=== PATIENT | female | born 1995 | race Caucasian/White ===

== ENCOUNTER 2020-11-19 10:49 | Inpatient (IN) | payer BC ==
--- NOTE | 2020-11-19 11:45 | ED ---
Psych HPI - General Chief Complaint: Psychiatric Symptoms Stated Complaint: Mental Health Time Seen by Provider: 11/19/20 11:08 Source: patient Mode of arrival: ambulatory - History of Present Illness Initial Comments: 25-year-old female history of depression presents emergency department today for chief complaint of suicidal thoughts increasing depression x 2 days. Patient states that she has been on multiple medications for depression none of which seemed to help. They're currently evaluating her for possible bipolar disorder. They have tried Lamictal for the past 2 days but she states she feels this is making her much worse she states her depression has increased the past 2 days and now she has increasing suicidal thoughts. She denies specific plan. Patient denies any recent fever, chills, shortness of breath, chest pain, back pain, abdominal pain, nausea or vomiting, numbness or tingling, dysuria or hematuria, constipation or diarrhea, headaches or visual changes, or any other complaints. - Related Data Home Medications Medication Instructions Recorded Confirmed Citalopram Hydrobromide [CeleXA] 20 mg PO HS 11/19/20 11/19/20 lamoTRIgine [LaMICtal] 50 mg PO HS 11/19/20 11/19/20 Allergies Allergy/AdvReac Type Severity Reaction Status Date / Time No Known Allergies Allergy Verified 11/19/20 12:37 Review of Systems ROS Statement: Those systems with pertinent positive or pertinent negative responses have been documented in the HPI. ROS Other: All systems not noted in ROS Statement are negative. Past Medical History Past Medical History: No Reported History History of Any Multi-Drug Resistant Organisms: None Reported Past Surgical History: No Surgical Hx Reported Past Psychological History: Anxiety, Bipolar, Depression Smoking Status: Never smoker Past Alcohol Use History: None Reported Past Drug Use History: None Reported General Exam - General Exam Comments Initial Comments: General: The patient is awake and alert, in no distress Eye: +3 mm pupils are equal, round and reactive to light, extra-ocular movements are intact. No nystagmus. There is normal conjunctiva bilaterally. No signs of icterus. Ears, nose, mouth and throat: There are moist mucous membranes and no oral lesions. Neck: The neck is supple, there is no tenderness or JVD. Cardiovascular: There is a regular rate and rhythm. No murmur, rub or gallop is appreciated. Respiratory: Lungs are clear to auscultation, respirations are non-labored, breath sounds are equal. No wheezes, stridor, rales, or rhonchi. Gastrointestinal: Soft, non-distended, non-tender abdomen without masses or organomegaly noted. There is no rebound or guarding present. Musculoskeletal: Normal ROM, no tenderness. Strength 5/5. Sensation intact. Radial a pulses equal bilaterally 2+. Neurological: A&O x 3. CN II-XII intact grossly, There are no obvious motor or sensory deficits. Coordination appears grossly intact. Speech is normal. Skin: Skin is warm and dry and no rashes or lesions are noted. Psychiatric: Cooperative, appropriate mood & affect, normal judgment. Limitations: no limitations Course Vital Signs 11/19/20 11/19/20 10:54 14:22 Temperature 98 F Pulse Rate 65 66 Respiratory 20 16 Rate Blood Pressure 122/82 116/74 O2 Sat by Pulse 99 100 Oximetry Medical Decision Making - Medical Decision Making 25yo with hx of depression, currently being evaluated outpatient for possible bipolar on lamictal x 2 days presenting for cc of increasing depression with suicidal thoughts. No physical complaints. ROS (-). Denies or urinary symptoms. Does not appear altered nor intoxicated and at this time i feel patient is stable for EPS evaluation. EPS recommended admission. - Lab Data Lab Results 11/19/20 11/19/20 11/19/20 Range/Units 11:40 11:40 13:22 Urine HCG, Qual Not Detected (Not Detectd) Urine Opiates Screen Not Detected (NotDetected) Ur Oxycodone Screen Not Detected (NotDetected) Urine Methadone Screen Not Detected (NotDetected) Ur Propoxyphene Screen Not Detected (NotDetected) Ur Barbiturates Screen Not Detected (NotDetected) U Tricyclic Antidepress Not Detected (NotDetected) Ur Phencyclidine Scrn Not Detected (NotDetected) Ur Amphetamines Screen Not Detected (NotDetected) U Methamphetamines Scrn Not Detected (NotDetected) U Benzodiazepines Scrn Not Detected (NotDetected) Urine Cocaine Screen Not Detected (NotDetected) U Marijuana (THC) Screen Not Detected (NotDetected) Coronavirus (PCR) Not Detected (Not Detectd) Disposition Clinical Impression: Depression, Suicidal ideation Disposition: TRANSFER TO PSYCH HOSP/UNIT Condition: Stable Is patient prescribed a controlled substance at d/c from ED?: No Time of Disposition: 15:11 Decision to Admit Reason: Admit from EC Decision Date: 11/19/20 Decision Time: 15:11
[2020-11-19 12:08] LABS: Amphetamine Screen,Urine Not Detected (NotDetected); Barbiturate Screen,Urine Not Detected (NotDetected); Benzodiazepines Screen,Urine Not Detected (NotDetected); Cocaine Screen,Urine Not Detected (NotDetected); Methadone Screen, Urine Not Detected (NotDetected); Opiate Screen,Urine Not Detected (NotDetected); Oxycodone Screen, Urine Not Detected (NotDetected); Phencyclidine Screen,Urine Not Detected (NotDetected); Tricyclic Antidepressant,Urine Not Detected (NotDetected); Urn Cannabinoid Scrn Not Detected (NotDetected)
[2020-11-19] MEDS ORDERED: LORazepam 1 MG TAB PO PRN (14:24)
[2020-11-19] MEDS ORDERED: MAGNESIUM HYDROXIDE 2,400 MG/10 ML CUP PO PRN (14:24)
[2020-11-19] MEDS ORDERED: MAG HYDROX/AL HYDROX/SIMETH 30 ML CUP PO PRN (14:24)
[2020-11-19] MEDS ORDERED: HALOPERIDOL LACTATE 5 MG/ML 1 ML VIAL IM PRN (14:30)
[2020-11-19] MEDS ORDERED: LORazepam 2 MG/ML INJ IM SCH (16:00)
[2020-11-19] MEDS ORDERED: LORazepam 2 MG/ML INJ IM PRN (16:16)
[2020-11-19] MEDS: lamoTRIgine 25 MG TAB PO SCH (20:07)
[2020-11-19] MEDS: CITALOPRAM HYDROBROMIDE 20 MG TAB PO SCH (20:07)
[2020-11-19] MEDS: ACETAMINOPHEN TAB 325 MG TAB PO PRN (20:09)
[2020-11-20] MEDS ORDERED: NICOTINE 14MG/24HR PATCH TRANSDERM SCH (09:00)
[2020-11-20 10:02] LABS: Basophils % (A) 1 %; Eosinophils # (A) 0.1 k/uL (0-0.7); Eosinophils % (A) 2 %; HCT 36.2 % (34.0-46.0); HGB 11.5 gm/dL (11.4-16.0); Hypochromasia Slight; Lymphocytes % (A) 27 %; MCH 27.3 pg (25.0-35.0); MCHC 31.8 g/dL (31.0-37.0); MCV 85.7 fL (80.0-100.0); Monocytes # (A) 0.2 k/uL (0-1.0); Monocytes % (A) 5 %; Neutrophils # (A) 2.5 k/uL (1.3-7.7); Neutrophils % (A) 64 %; Platelet Count 266 k/uL (150-450); RBC 4.23 m/uL (3.80-5.40); RDW 15.9 % (11.5-15.5); WBC 3.9 k/uL (3.8-10.6)
[2020-11-20 10:25] LABS: ALT 20 U/L (4-34); AST 29 U/L (14-36); African American GFR (CKD) >90 (>60 ml/min/1.73 sqM); Albumin 4.6 g/dL (3.5-5.0); Alkaline Phosphatase 57 U/L (38-126); Anion Gap 9 mmol/L; Blood Urea Nitrogen 10 mg/dL (7-17); Calcium 9.8 mg/dL (8.4-10.2); Carbon Dioxide 26 mmol/L (22-30); Chloride 106 mmol/L (98-107); Cholesterol 191 mg/dL (<200); Glucose 92 mg/dL (74-99); HDL Cholesterol 49 mg/dL (40-60); LDL Cholesterol,Calculated 124 mg/dL (0-99); Non-African American GFR(CKD) >90 (>60 ml/min/1.73 sqM); Potassium 4.2 mmol/L (3.5-5.1); Sodium 141 mmol/L (137-145); Total Bilirubin 0.5 mg/dL (0.2-1.3); Total Protein 7.7 g/dL (6.3-8.2); Triglycerides 89 mg/dL (<150)
--- NOTE | 2020-11-20 16:00 | P.HP ---
Psychiatric H&P - . H&P Date: 11/20/20 History & Physical: Allergies Allergy/AdvReac Type Severity Reaction Status Date / Time No Known Allergies Allergy Verified 11/19/20 15:17 Vital Signs Temp 98.8 F 11/20/20 06:07 Pulse 65 11/20/20 06:07 Resp 16 11/19/20 15:29 BP 109/74 11/20/20 06:07 Pulse Ox 98 11/19/20 15:29 Intake & Output 11/19/20 11/20/20 11/20/20 18:59 06:59 18:59 Weight 72.575 kg Laboratory Last Values WBC 3.9 k/uL (3.8-10.6) 11/20/20 09:30 RBC 4.23 m/uL (3.80-5.40) 11/20/20 09:30 Hgb 11.5 gm/dL (11.4-16.0) 11/20/20 09:30 Hct 36.2 % (34.0-46.0) 11/20/20 09:30 MCV 85.7 fL (80.0-100.0) 11/20/20 09:30 MCH 27.3 pg (25.0-35.0) 11/20/20 09:30 MCHC 31.8 g/dL (31.0-37.0) 11/20/20 09:30 RDW 15.9 % (11.5-15.5) H 11/20/20 09:30 Plt Count 266 k/uL (150-450) 11/20/20 09:30 MPV 8.0 11/20/20 09:30 Neutrophils % 64 % 11/20/20 09:30 Lymphocytes % 27 % 11/20/20 09:30 Monocytes % 5 % 11/20/20 09:30 Eosinophils % 2 % 11/20/20 09:30 Basophils % 1 % 11/20/20 09:30 Neutrophils # 2.5 k/uL (1.3-7.7) 11/20/20 09:30 Lymphocytes # 1.0 k/uL (1.0-4.8) 11/20/20 09:30 Monocytes # 0.2 k/uL (0-1.0) 11/20/20 09:30 Eosinophils # 0.1 k/uL (0-0.7) 11/20/20 09:30 Basophils # 0.0 k/uL (0-0.2) 11/20/20 09:30 Hypochromasia Slight 11/20/20 09:30 Sodium 141 mmol/L (137-145) 11/20/20 09:30 Potassium 4.2 mmol/L (3.5-5.1) 11/20/20 09:30 Chloride 106 mmol/L (98-107) 11/20/20:30 Carbon Dioxide 26 mmol/L (22-30) 11/20/20 09:30 Anion Gap 9 mmol/L 11/20/20:30 BUN 10 mg/dL (7-17) 11/20/20 09:30 Creatinine 0.86 mg/dL (0.52-1.04) 11/20/20 09:30 Est GFR (CKD-EPI)AfAm >90 (>60 ml/min/1.73 sqM) 11/20/20:30 Est GFR (CKD-EPI)NonAf >90 (>60 ml/min/1.73 sqM) 11/20/20 09:30 Glucose 92 mg/dL (74-99) 11/20/20 09:30 Calcium 9.8 mg/dL (8.4-10.2) 11/20/20 09:30 Total Bilirubin 0.5 mg/dL (0.2-1.3) 11/20/20 09:30 AST 29 U/L (14-36) 11/20/20 09:30 ALT 20 U/L (4-34) 11/20/20 09:30 Alkaline Phosphatase 57 U/L (38-126) 11/20/20 09:30 Total Protein 7.7 g/dL (6.3-8.2) 11/20/20 09:30 Albumin 4.6 g/dL (3.5-5.0) 11/20/20 09:30 Triglycerides 89 mg/dL (<150) 11/20/20:30 Cholesterol 191 mg/dL (<200) 11/20/20 09:30 LDL Cholesterol, Calc 124 mg/dL (0-99) H 11/20/20:30 HDL Cholesterol 49 mg/dL (40-60) 11/20/20 09:30 TSH 1.690 mIU/L (0.465-4.680) 11/20/20 09:30 Urine HCG, Qual Not Detected (Not Detectd) 11/19/20 11:40 Urine Opiates Screen Not Detected (NotDetected) 11/19/20 11:40 Ur Oxycodone Screen Not Detected (NotDetected) 11/19/20 11:40 Urine Methadone Screen Not Detected (NotDetected) 11/19/20 11:40 Ur Propoxyphene Screen Not Detected (NotDetected) 11/19/20 11:40 Ur Barbiturates Screen Not Detected (NotDetected) 11/19/20 11:40 U Tricyclic Antidepress Not Detected (NotDetected) 11/19/20 11:40 Ur Phencyclidine Scrn Not Detected (NotDetected) 11/19/20 11:40 Ur Amphetamines Screen Not Detected (NotDetected) 11/19/20 11:40 U Methamphetamines Scrn Not Detected (NotDetected) 11/19/20 11:40 U Benzodiazepines Scrn Not Detected (NotDetected) 11/19/20 11:40 Urine Cocaine Screen Not Detected (NotDetected) 11/19/20 11:40 U Marijuana (THC) Screen Not Detected (NotDetected) 11/19/20 11:40 Coronavirus (PCR) Not Detected (Not Detectd) 11/19/20 13:22 11/20/20 15:47 Chief complaint: Patient stated that she had a breakdown at job and she asked to, he had. She stated she was feeling depressed and suicidal and was freaking out. History of present illness: this patient stated that that she has been feeling depressed for a long period of time. She stated she remembers feeling depressed even in middle school and high school. She was working as a bank analyst. She stated that that she becomes irritated and angry and upset. She stated she lik es to be alone and she does not sleep at all. She feels anxious and has a mood swings and feels depressed angry euphoric at different time periods. She stated that she has been on Celexa and Lamictal for 2 years but medication does not seem to be working for her. She is only on Lamictal 50 mg a day and it was started 3 days ago. She stated she has a too many thoughts come into her mind. She stated that she forgets things because she is unable to focus on them. Past history she stated she has been under psychiatric care for as long as she can remember and was in a psychiatric hospital one time before. She stated she also has been in counseling. Family history: She stated her family is a in [place] and she was living with her mother and sisters there. She stated her is from [place] and they have a 3-year-old son. She denies being at this time. She stated her is a military police officer in the [place] . She stated she came voluntarily. Medical history: She denied having any medical or physical problems. Social history: She stated that she grew up in [place] and finished high school. She stated she had to repeat her high school because she was not able to focus attention. 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 She stated she has not had any other jobs in [place]. She stated she has been working on this job since 2019. Substance abuse history she denied any alcohol abuse and marijuana abuse are history of any other drug usage. She stated she tried marijuana when she was in [place] but it gives out anxiety so she never did it again. History of suicide and homicide: She stated that she had fleeting suicidal thoughts and they come and go. She stated that she feels overwhelmed but has never attempted suicide. Legal history: she denies having any legal problems ever. ALLERGIES: she denies any history of ALLERGIES. Mental status examination: This patient is alert and oriented to time place and person her appearance is neat and clean. She is neat and clean and her mood is depressed. Her affect is depressed as well. She denies any hallucinations or delusions or any disorder of thought content. She does not have any loose associations of flight of ideas or any disorder of thought process. Her insight into her problems is a poor and her judgment also has been compromised by her illness. She described herself as a very impulsive and stated that when she wants something she wants it right then and over there. Her cognition is intact and her memory functions for immediate, recent and remote memory intact. Diagnostic impression: Bipolar disorder depressed type Rule out generalized anxiety disorder Treatment plan: she will be maintained on medication and in the milieu. She will be encouraged to participate in unit activities.
[2020-11-20] MEDS: lamoTRIgine 25 MG TAB PO SCH (22:02)
[2020-11-20] MEDS: CITALOPRAM HYDROBROMIDE 20 MG TAB PO SCH (22:03)
[2020-11-20 22:04] LABS: Hemoglobin A1C 5.5 % (4.0-6.0)
--- NOTE | 2020-11-20 23:37 | P.MDCNMH ---
History of Present Illness H&P Date: 11/20/20 Chief Complaint: Suicidal ideation Patient is a 25-year-old female with a known history of anxiety/depression/bipolar disorder and is on antidepressants with Celexa and Lamictal at home presents to ER due to suicidal ideation. Patient states that she has been depressed for the past 2 days and was behaving abnormally at her workplace. Patient outpatient psychiatric clinic and is evaluating for bipolar disorder. Patient is on Lamictal for the past 2 days but she states that she feels this is making her much worse and her depression has increased for the past 2 days.Patient denied having a plan. She presented to ER for evaluation. Denied any complaints of recent illnesses. No fever no chills. No cough or sputum production. No chest pain or shortness of breath. No nausea vomiting abdominal pain or diarrhea. No dysuria or hematuria. No hallucinations or any other complaints. Laboratory data reviewed. TSH level is 1.69 UDS negative and COVID-19 PCR negative Liver enzymes are not elevated. Review of Systems Constitutional: Patient denies any fever or chills . No generalized weakness or weight loss. Abdomen: Patient denied nausea vomiting and diarrhea and abdominal pain. Cardiovascular: Patient denies any chest pain or short of breath no palpitations. Respiratory: patient denied any cough or sputum production. No shortness of breath Neurologic: Patient denied any numbness or tingling headache. Musculoskeletal: Patient denies any complaints of joint swelling or deformity. Skin: Negative Psychiatric: Negative Endocrine: No heat or cold intolerance. No recent weight gain. Genitourinary: No dysuria or hematuria. All other 14 point ROS negative except the above Past Medical History Past Medical History: No Reported History History of Any Multi-Drug Resistant Organisms: None Reported Past Surgical History: No Surgical Hx Reported Past Anesthesia/Blood Transfusion Reactions: No Reported Reaction Past Psychological History: Anxiety, Bipolar, Depression Smoking Status: Never smoker Past Alcohol Use History: Rare Additional Past Alcohol Use History / Comment(s): Pt. reports rare ETOH use. BAT 0. UDS negative. Past Drug Use History: None Reported - Past Family History Mother Family Medical History: No Reported History Father Family Medical History: No Reported History Medications and Allergies Home Medications Medication Instructions Recorded Confirmed Type Citalopram Hydrobromide [CeleXA] 20 mg PO HS 11/19/20 11/19/20 History lamoTRIgine [LaMICtal] 50 mg PO HS 11/19/20 11/19/20 History Allergies Allergy/AdvReac Type Severity Reaction Status Date / Time No Known Allergies Allergy Verified 11/19/20 15:17 Physical Exam Vitals: Vital Signs Temp Pulse Pulse Resp BP BP Pulse Ox 11/20/20 06:07 98.8 F 65 109/74 11/19/20 20:13 97.5 F L 11/19/20 15:29 98.3 F 97 16 111/68 98 11/19/20 14:22 66 16 116/74 100 Intake and Output 11/19/20 11/20/20 11/20/20 22:59 06:59 14:59 Other: Weight 72.575 kg PHYSICAL EXAMINATION: Patient is lying in the bed comfortably, no acute distress, awake alert and oriented.. HEENT: Normocephalic. Neck is supple. Pupils reactive. Nostrils clear. Oral cavity is moist. Ears reveal no drainage. Neck reveals no JVD, carotid bruits, or thyromegaly. CHEST EXAMINATION: Trachea is central. Symmetrical expansion. Lung jordan clear to auscultation and percussion. CARDIAC: Normal S1, S2 with no gallops. No murmurs ABDOMEN: Soft. Bowel sounds normal. No organomegaly. No abdominal bruits. Extremities: reveal no edema. No clubbing or cyanosis Neurologically awake, alert, oriented x3 with well-coordinated movements. No f ocal deficits noted Skin: No rash or skin lesions. Psychiatric: Coperative. Nonsuicidal Musculoskeletal: No joint swelling or deformity. Normal range of motion. Cranial Nerve Examination - Cranial Nerves Cranial Nerve I- Olfactory: Intact Cranial Nerve II- Optic: Intact Cranial Nerve III- Oculomotor: Intact Cranial Nerve IV- Trochlear: Intact Cranial Nerve V- Trigeminal: Intact Cranial Nerve - Abducens: Intact Cranial Nerve VII- Facial: Intact Cranial Nerve VIII- Auditory: Intact Cranial Nerve IX- Glossopharyngeal: Intact Cranial Nerve X- Vagus: Intact Cranial Nerve XI- Accessory: Intact Cranial Nerve XII- Hypoglossal: Intact Results CBC & Chem 7: 11/20/20 09:30 11/20/20 09:30 Labs: Abnormal Lab Results - Last 24 Hours (Table) 11/20/20 11/20/20 Range/Units 09:30 09:30 RDW 15.9 H (11.5-15.5) % LDL Cholesterol, Calc 124 H (0-99) mg/dL Assessment and Plan Assessment: Severe depression with acute suicidal ideation. Depression and bipolar disorder history DVT prophylaxis. Patient is ambulatory currently. Plan: Patient will be continued on current psychiatric management and medications. We will follow up CBC and BMP and liver enzymes. TSH level is within normal limits. Continue the current management and further recommendations based on the clinical course.
--- NOTE | 2020-11-21 12:39 | P.PN ---
Progress Note - Text Progress Note Date: 11/21/20 Frances continues to feel severely depressed. She keeps her room closed and isolates herself. She does not talk to anybody and stated that she feels tired. Her speech is extremely low in volume, monotonous and mostly monosyllable. She has no motivation and quite withdrawn. Speech is a hardly productive and it is very difficult to get any information out of her. Eye contact is poor and her posture is stooped. She continues to show severe neurovegetative symptoms of depression. She continues to have suicidal thoughts. She will be maintained on her medication and will be encouraged to come out of the room and participate in milieu activities.
[2020-11-21] MEDS: ACETAMINOPHEN TAB 325 MG TAB PO PRN (21:52)
[2020-11-21] MEDS: CITALOPRAM HYDROBROMIDE 20 MG TAB PO SCH (21:52)
[2020-11-21] MEDS: lamoTRIgine 25 MG TAB PO SCH (21:52)
[2020-11-22] MEDS ORDERED: cloNIDine HCL 0.1 MG TAB PO STA (11:14)
[2020-11-22] MEDS ORDERED: LITHIUM CARBONATE 300 MG CAP PO STA (11:15)
--- NOTE | 2020-11-22 11:45 | P.PN ---
Progress Note - Text Progress Note Date: 11/22/20 Interval History: Patient was seen wandering the hallways and was directable and agreeable to speak with manual writer in the office. Patient reports that she is not sure of her diagnosis and is not completely convinced that she is bipolar. She does express a strong desire to be treated for ADHD. She does endorse significant symptoms of hypomania including racing thoughts, impulsivity, mood swings, irritability, and pressured speech. Furthermore, she does report increased goal-directed activity as well as periods of excessive energy. She does endorse significant symptoms of ADHD as well including distractibility and lack of focus which is consistent with her educational history. She is currently not reporting any suicidal or homicidal ideation, intention, and/or plan. She is denying any auditory or visual hallucinations. She has been adherent with her medications but feels like none of them are beneficial for her. She reports some difficulty sleeping. Mental Status Exam: General Appearance: Patient appears to be stated age is alert, directable, and cooperative. Patient has good hygiene and grooming. Behavior: Patient is calmly seated without any agitated behavior. Psychomotor agitation is evident. Eye contact is poor. Speech: Patient's speech is fluent and pressured and spontaneous. Mood/Affect: Mood is anxious. Affect is mood congruent and nervous. Suicidality/Homicidality: Patient denies having any suicidal or homicidal ideation intent or plan. Perceptions: Patient denies any visual hallucinations and denies any auditory hallucinations Though content/process: There is no evidence of any delusional thought content and thought process is linear and goal-directed. Flight of ideas is evident. Memory and concentration: AOX3, grossly intact for the purposes of this session Judgment and insight: Improving mildly Assessment Bipolar 2 disorder, hypomanic episode Rule out ADHD Plan: -Patient continues to meet criteria for inpatient psychiatric admission for symptom stabilization and safety. Patient has signed adult voluntary form and medication consent and was placed in patient's chart. -Medications: Start lithium 300 mg by mouth twice a day for mood stabilization Start Seroquel 75 mg by mouth at bedtime mood stabilization Start clonidine 0.1 mg by mouth twice a day for possible ADHD as per patient preference. -When necessary Ativan and Haldol agitation/aggression. -SW on board for discharge planning. Encouraged the patient to participate in milieu.
[2020-11-22] MEDS: LITHIUM CARBONATE 300 MG CAP PO SCH (21:37)
[2020-11-22] MEDS: cloNIDine HCL 0.1 MG TAB PO SCH (21:37)
[2020-11-22] MEDS: QUEtiapine 25 MG TAB PO SCH (21:37)
[2020-11-23] MEDS: cloNIDine HCL 0.1 MG TAB PO SCH ×2 (08:19→22:22)
[2020-11-23] MEDS: LITHIUM CARBONATE 300 MG CAP PO SCH ×2 (08:19→22:22)
--- NOTE | 2020-11-23 11:24 | P.PN ---
Progress Note - Text Progress Note Date: 11/23/20 Interval History: Patient was seen wandering the hallways and was directable and agreeable to speak with selling underwriter in the office. Patient reports that overall she is feeling better. She is not bringing any suicidal or homicidal ideation, intention, and/or plan. She is not reporting any auditory or visual hallucinations but is denying any paranoia or other delusions. Less racing thoughts, mood swings, or irritability. She reports that she was able to sleep well overnight. In regards to medications, she has been in adherent but is endorsing some sedation as a side effect. When asked if she would like to decrease her dose of Seroquel at bedtime, the patient states that she would not. She states that she would like to try the medication at its current dose as she feels it is beneficial. Mental Status Exam: General Appearance: Patient appears to be stated age is alert, directable, and cooperative. Patient has good hygiene and grooming. Behavior: Patient is calmly seated without any agitated behavior. Psychomotor activity appears normal today. Eye contact has improved. Speech: Patient's speech is fluent and pressured and spontaneous. Mood/Affect: Mood is okay. Affect is congruent and constricted in range. Suicidality/Homicidality: Patient denies having any suicidal or homicidal ideation intent or plan. Perceptions: Patient denies any visual hallucinations and denies any auditory hallucinations Though content/process: There is no evidence of any delusional thought content and thought process is linear and goal-directed. Memory and concentration: AOX3, grossly intact for the purposes of this session Judgment and insight: Improving mildly Assessment Bipolar 2 disorder, hypomanic episode Rule out ADHD Plan: -Patient continues to meet criteria for inpatient psychiatric admission for symptom stabilization and safety. Patient has signed adult voluntary form and medication consent and was placed in patient's chart. -Medications: Continue lithium 300 mg by mouth twice a day for mood stabilization Continue Seroquel 75 mg by mouth at bedtime mood stabilization Continue clonidine 0.1 mg by mouth twice a day for possible ADHD as per patient preference. -When necessary Ativan and Haldol agitation/aggression. -SW on board for discharge planning. Encouraged the patient to participate in milieu.
--- NOTE | 2020-11-23 16:38 | P.CON ---
Consult Note - . Consult date: 11/23/20 Assessment/Plan:: Evaluated 25-year-old female this a.m. with known history of anxiety/depression/bipolar disorder patient currently on Celexa and Lamictal. Patient presented to the emergency department for having abnormal thoughts for two day duration. Patient denied suicidal ideation. Patient denies fever, chills, chest pain, shortness of breath, palpitations, abdominal pain, or nausea or vomiting. Physical assessment unremarkable within normal range Assessment severe depression depression with bipolar disorder history Plan continue psychiatric treatment
[2020-11-23] MEDS: QUEtiapine 25 MG TAB PO SCH (22:22)
[2020-11-24 06:50] VITALS: RESP 16; TEMP 97.5
[2020-11-24] MEDS: LITHIUM CARBONATE 300 MG CAP PO SCH (09:02)
[2020-11-24 09:24] VITALS: BP 114/56; PULSE 112
--- NOTE | 2020-11-24 09:24 | P.DS ---
Providers Date of admission: 11/19/20 13:54 Expected date of discharge: 11/24/20 Attending physician: Jordi Chinchilla MD Consults: 11/19/20 14:24 Consult Physician Routine Consulting Provider: Desirae Burris Consult Reason/Comments: medical management Do you want consulting provider notified?: Yes Primary care physician: Don Crocker Mejia - Discharge Diagnosis(es) (1) Bipolar 2 disorder Current Visit: Yes Status: Acute Priority: High (2) Attention deficit hyperactivity disorder (ADHD) Current Visit: Yes Status: Chronic Priority: Medium Hospital Course: Admission HPI: Initial psychiatric evaluation was completed by Dr. Phoenix on 11/20/2020 who wrote: "Patient stated that she had a breakdown at job and she asked to, he had. She stated she was feeling depressed and suicidal and was freaking out. This patient stated that that she has been feeling depressed for a long period of time. She stated she remembers feeling depressed even in middle school and high school. 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 She stated that that she becomes irritated and angry and upset. She stated she likes to be alone and she does not sleep at all. She feels anxious and has a mood swings and feels depressed angry euphoric at different time periods. She stated that she has been on Celexa and Lamictal for 2 years but medication does not seem to be working for her. She is only on Lamictal 50 mg a day and it was started 3 days ago. She stated she has a too many thoughts come into her mind. She stated that she forgets things because she is unable to focus on them. Past history she stated she has been under psychiatric care for as long as she can remember and was in a psychiatric hospital one time before. She stated she also has been in counseling." Hospital course: Upon admission to the unit patient was initially presented with significant symptoms of depression and elevated anxiety. She was initially started on her home medications. Upon reevaluation on Sunday, the patient did display endorse significant symptoms of hypomania including racing thoughts, mood lability, increased goal directed behavior, and impulsivity. She also has a significant family history of bipolar disorder. Furthermore, the patient did endorse a significant history of attention deficit hyperactivity disorder despite not previously being diagnosed. The patient was started on a regimen of lithium and Seroquel for management of bipolar disorder and They 0.1 mg by mouth twice a day for ADHD. The patient displayed a significant improvement in mood symptoms, psychomotor activity, and insight over the course of the hospitalization. She participated in individual and milieu therapy. She was evaluated by the medical team and was cleared prior to discharge. On the day of discharge, the patient is not reporting any suicidal or homicidal ideation, intention, and/or plan. She is not reporting any auditory or visual hallucinations. She is denying any paranoia or other delusions. She is not reportiPatient is calmly seated without any agitated behavior. Psychomotor activity appears normal. Eye contact is good. Speech: Patient's speech is fluent and nonpressured. Mood/Affect: Patient reports their mood is "much better", affect is congruent and euthymic to bright. Suicidality/Homicidality: Patient denies having any suicidal or homicidal ideation intent or plan. Perceptions: Patient denies any auditory or visual hallucinations. Though content/process: There is no evidence of any delusional thought content and thought process is linear and goal-directed. The patient is future oriented. Memory and concentration: AOX3, grossly intact for the purposes of this session. Can spell "WORLD" backwards correctly. Judgment and insight: Improved Impression: Bipolar disorder, type II, hypomanic episode Attention deficit hyperactivity disorder Plan: -Continue with discharge today as patient has improved and stabilized psychia trically and is not currently an imminent threat to herself and/or others. -Continue medications: [place] 300 mg by mouth twice a day for mood stabilization Seroquel 75 mg by mouth at bedtime for mood stabilization Clonidine 0.05 mg by mouth twice a day for ADHD -Patient was counseled on the need for medication compliance and appropriate follow-up at mental health and also primary care for medical issues. Patient verbalized understanding and agreed. -Social work to arrange for and conduct family meeting to ensure safety upon discharge and answer any questions/concerns. Social work also to arrange for patients follow up appointments for psychiatric care along with follow up with primary care provider. -Patient counseled on abstaining from recreational drugs and marijuana and alcohol. Was informed/educated on the adverse effects on their physical and mental health. Patient verbally agreed and understood. -Patient was instructed to return to the hospital or seek immediate medical care if their psychiatric or medical symptoms do worsen or reoccur. -Psychoeducation and supportive therapy provided to patient. Risks and benefits of pharmacological treatment versus the risks and benefits of nontreatment weight and discussed. Informed consent discussion held. Common side effects of psychotropics discussed such as, but not limited to headache, GI disturbance, sexual dysfunction, movement disorders, sedation, and orthostatic hypotension. Life threatening and blackbox warnings of prescribed medications also discussed. Potential risks of operating a vehicle or heavy machinery discussed with patient at length. Advised on importance of compliance and a reliable and responsible manner. Patient advised to review FDA consumer labeling of all medications prior to taking. Patient verbalized understanding of potential risks, and agrees with current treatment plan. Patient advised to medically contact physician/emergency personnel if any acute changes in condition occur. Laboratory Results WBC 3.9 k/uL (3.8-10.6) 11/20/20 09:30 RBC 4.23 m/uL (3.80-5.40) 11/20/20 09:30 Hgb 11.5 gm/dL (11.4-16.0) 11/20/20 09:30 Hct 36.2 % (34.0-46.0) 11/20/20 09:30 MCV 85.7 fL (80.0-100.0) 11/20/20 09:30 MCH 27.3 pg (25.0-35.0) 11/20/20 09:30 MCHC 31.8 g/dL (31.0-37.0) 11/20/20 09:30 RDW 15.9 % (11.5-15.5) H 11/20/20 09:30 Plt Count 266 k/uL (150-450) 11/20/20 09:30 MPV 8.0 11/20/20 09:30 Neutrophils % 64 % 11/20/20 09:30 Lymphocytes % 27 % 11/20/20 09:30 Monocytes % 5 % 11/20/20 09:30 Eosinophils % 2 % 11/20/20 09:30 Basophils % 1 % 11/20/20 09:30 Neutrophils # 2.5 k/uL (1.3-7.7) 11/20/20 09:30 Lymphocytes # 1.0 k/uL (1.0-4.8) 11/20/20 09:30 Monocytes # 0.2 k/uL (0-1.0) 11/20/20 09:30 Eosinophils # 0.1 k/uL (0-0.7) 11/20/20 09:30 Basophils # 0.0 k/uL (0-0.2) 11/20/20 09:30 Hypochromasia Slight 11/20/20 09:30 Sodium 141 mmol/L (137-145) 11/20/20 09:30 Potassium 4.2 mmol/L (3.5-5.1) 11/20/20 09:30 Chloride 106 mmol/L (98-107) 11/20/20 09:30 Carbon Dioxide 26 mmol/L (22-30) 11/20/20 09:30 Anion Gap 9 mmol/L 11/20/20 09:30 BUN 10 mg/dL (7-17) 11/20/20 09:30 Creatinine 0.86 mg/dL (0.52-1.04) 11/20/20 09:30 Est GFR (CKD-EPI)AfAm >90 (>60 ml/min/1.73 sqM) 11/20/20 09:30 Est GFR (CKD-EPI)NonAf >90 (>60 ml/min/1.73 sqM) 11/20/20 09:30 Glucose 92 mg/dL (74-99) 11/20/20 09:[address] Glu mg/dL 111 11/20/20 09:30 Hemoglobin A1c 5.5 % (4.0-6.0) 11/20/20 09:30 Calcium 9.8 mg/dL (8.4-10.2) 11/20/20 09:30 Total Bilirubin 0.5 mg/dL (0.2-1.3) 11/20/20 09:30 AST 29 U/L (14-36) 11/20/20 09:30 ALT 20 U/L (4-34) 11/20/20 09:30 Alkaline Phosphatase 57 U/L (38-126) 11/20/20 09:30 Total Protein 7.7 g/dL (6.3-8.2) 11/20/20 09:30 Albumin 4.6 g/dL (3.5-5.0) 11/20/20 09:30 Triglycerides 89 mg/dL (<150) 11/20/20 09:30 Cholesterol 191 mg/dL (<200) 11/20/20 09:30 LDL Cholesterol, Calc 124 mg/dL (0-99) H 11/20/20 09:30 HDL Cholesterol 49 mg/dL (40-60) 11/20/20 09:30 TSH 1.690 mIU/L (0.465-4.680) 11/20/20 09:30 Urine HCG, Qual Not Detected (Not Detectd) 11/19/20 11:40 Urine Opiates Screen Not Detected (NotDetected) 11/19/20 11:40 Ur Oxycodone Screen Not Detected (NotDetected) 11/19/20 11:40 Urine Methadone Screen Not Detected (NotDetected) 11/19/20 11:40 Ur Propoxyphene Screen Not Detected (NotDetected) 11/19/20 11:40 Ur Barbiturates Screen Not Detected (NotDetected) 11/19/20 11:40 U Tricyclic Antidepress Not Detected (NotDetected) 11/19/20 11:40 Ur Phencyclidine Scrn Not Detected (NotDetected) 11/19/20 11:40 Ur Amphetamines Screen Not Detected (NotDetected) 11/19/20 11:40 U Methamphetamines Scrn Not Detected (NotDetected) 11/19/20 11:40 U Benzodiazepines Scrn Not Detected (NotDetected) 11/19/20 11:40 Urine Cocaine Screen Not Detected (NotDetected) 11/19/20 11:40 U Marijuana (THC) Screen Not Detected (NotDetected) 11/19/20 11:40 Coronavirus (PCR) Not Detected (Not Detectd) 11/19/20 13:22 Vital Signs Temp 97.5 F L 11/24/20 06:30 Pulse 70 11/24/20 06:30 Resp 16 11/24/20 06:30 BP 97/55 11/24/20 06:30 Pulse Ox 98 11/19/20 15:29 Allergies Allergy/AdvReac Type Severity Reaction Status Date / Time No Known Allergies Allergy Verified 11/19/20 15:17 Patient Condition at Discharge: Stable Plan - Discharge Summary Discharge Rx Participant: No New Discharge Prescriptions: New cloNIDine HCL [Catapres] 0.05 mg PO BID 30 Days tab [place] Carbonate 300 mg PO BID 30 Days cap QUEtiapine [SEROquel] 75 mg PO HS 30 Days tab Discontinued lamoTRIgine [LaMICtal] 50 mg PO HS Citalopram Hydrobromide [CeleXA] 20 mg PO HS Discharge Medication List [place] Carbonate 300 mg PO BID 30 Days cap 11/24/20 [Rx] QUEtiapine [SEROquel] 75 mg PO HS 30 Days tab 11/24/20 [Rx] cloNIDine HCL [Catapres] 0.05 mg PO BID 30 Days tab 11/24/20 [Rx] Follow up Appointment(s)/Referral(s): Don Ba MD [Primary Care Provider] - 1-2 days Activity/Diet/Wound Care/Special Instructions: Activity and diet as tolerated. Avoid the use of street drugs and alcohol. Take all medications as prescribed. When you are in need of refills on your medications please contact your medical provider and/or outpatient psychiatrist to have this done. Please go to scheduled outpatient appointment for aftercare treatment. If symptoms return or become worse, call the crisis line at and/or go to the nearest emergency room for evaluation. Discharge Disposition: HOME SELF-CARE
[2020-11-24] MEDS: cloNIDine HCL 0.1 MG TAB PO SCH (11:35)
== END 2020-11-24 14:17 | disposition home or self-care (01) | DRG 885 ==
LOC: EC 10:49 → 3MHU 13:54
PROVIDERS: ADMIT Psychiatry & Neurology Psychiatry; ATTEND Psychiatry & Neurology Psychiatry
DX: F31.81 Bipolar II disorder (principal); R45.851 Suicidal ideations; F41.1 Generalized anxiety disorder; Z20.822 Contact with and (suspected) exposure to COVID-19; F90.9 Attention-deficit hyperactivity disorder, unspecified type; G47.9 Sleep disorder, unspecified; Z79.899 Other long term (current) drug therapy
CPT/HCPCS: 80053; 80061; 80178; 80306; 81025; 82075; 83036; 84443; 85025; 87635; 99285

== ENCOUNTER 2022-06-02 11:48 | Outpatient (CLI) | payer BC ==
[2022-06-02 12:45] VITALS: BP 120/76; PULSE 106; RESP 16; TEMP 97.1
--- NOTE | 2022-06-25 11:00 | P.MSEPDOC ---
Presenting Problems - Arrival Data Date of Arrival on Unit: 06/02/22 Time of Arrival on Unit: 11:48 Mode of Transport: Ambulatory - Complaint OB-Reason for Admission/Chief Complaint: Decreased Movement Medical History - Information : 2 Para: 1 Term: 1 : 0 Abortions: Spontaneous or Elective: 0 Number of Living Children: 1 - Gestational Age Gestational Age by [place] (wks/days): 36 Weeks and 0 Days Review of Systems - Review of Systems Constitutional: No problems Breast: No problems ENT: No problems Cardiovascular: No problems Respiratory: No problems Gastrointestinal: No problems Genitourinary: No problems Musculoskeletal: No problems Neurological: No problems Skin: No problems Vital Signs - Temperature Temperature: 97.1 F Temperature Source: Temporal Artery Scan - Pulse Right Brachial Pulse Rate: 106 Pulse Assessment Method: Automatic Cuff - Respirations Respiratory Rate: 16 Oxygen Delivery Method: Room Air - Blood Pressure Right Arm Blood Pressure: 120/76 Blood Pressure Mean: 90 Blood Pressure Source: Automatic Cuff Medical Screen Scoring - Assessment - Baby A Baseline FHR: 135 Heart Rate - NICHD Category: Category I (Normal) NST: Reactive Physician Notification - Physician Notified Physician Notified Date: 06/02/22 Physician Notified Time: 12:30 Physician: Obed Ramsey New Order Received: Yes - Notification Comment Comment: d/c home Maternal Triage Index - Maternal Triage Index Presenting for scheduled procedure w/no complaint: No - Stat/Priority 1 Stat Priority 1: No - Urgent/Priority 2 Urgent Priority 2: Yes Provider Notified: Obed Ramsey Provider Notified Time: 12:30 Criteria Met for Priority 2: Decreased movement Disposition - Disposition OB Disposition: Discharge to home Discharge Date: 06/02/22 Discharge Time: 12:30 I agree with the RN Medical Screening Exam: Yes Physician's MSE Comment: I have neither seen nor examined the patient. Case reviewed; plan agreed upon as documented in EMR&OBIX.: Yes Diagnosis: RELATED CONDITIONS, UNSPECIFIED, THIRD TRIMESTER
== END 2022-06-02 12:30 | disposition home or self-care (01) ==
LOC: FBPOP 11:48
PROVIDERS: ATTEND Obstetrics & Gynecology
DX: O36.8130 Decreased fetal movements, third trimester, not applicable or unspecified (principal); Z3A.36 36 weeks gestation of pregnancy
CPT/HCPCS: 59025; 99213

== ENCOUNTER 2022-06-27 06:30 | Inpatient (IN) | payer BC ==
[2022-06-27] MEDS ORDERED: METHYLERGONOVINE 0.2 MG/ML 1 ML AMP IM PRN (06:54)
[2022-06-27] MEDS ORDERED: OXYTOCIN 10 UNIT/ML 1 ML VIAL IM PRN (06:54)
[2022-06-27] MEDS ORDERED: LIDOCAINE 0.5% (PF) 5 MG/ML (50 ML SDV) SQ PRN (06:54)
[2022-06-27] MEDS ORDERED: TERBUTALINE 1 MG/ML VIAL SQ PRN (06:54)
[2022-06-27] MEDS ORDERED: CARBOPROST TROMETHAMINE 250 MCG/ML 1 ML AMP IM PRN (06:54)
[2022-06-27] MEDS: LACTATED RINGERS 1,000 ML IV SCH ×2 (07:00→09:55)
[2022-06-27] MEDS ORDERED: OXYTOCIN 30 UNITS/500 ML NS 30 UNIT in SALINE 1 500ML.BAG IV SCH (07:00)
[2022-06-27 07:48] LABS: Anisocytosis Slight; HCT 27.9 % (34.0-46.0); HGB 8.3 gm/dL (11.4-16.0); Hypochromasia Marked; MCH 23.9 pg (25.0-35.0); MCHC 29.9 g/dL (31.0-37.0); MCV 79.9 fL (80.0-100.0); Microcytosis Slight; Platelet Count 320 k/uL (150-450); Poikilocytosis Moderate; RBC 3.49 m/uL (3.80-5.40); RDW 18.1 % (11.5-15.5)
[2022-06-27 08:06] LABS: Eosinophils # (M) 0.07 k/uL (0-0.7); Lymphocytes # (M) 2.19 k/uL (1.0-4.8); Monocytes # (M) 0.51 k/uL (0-1.0); Neutrophils # (M) 4.53 k/uL (1.3-7.7); Neutrophils % (M) 62 %; Nucleated Red Blood Cells 3 /100 WBC (0-0); Polychromasia Present; Total Cells Counted 100; WBC 7.3 k/uL (3.8-10.6)
[2022-06-27 08:07] LABS: Poikilocytosis (M) Present
[2022-06-27] MEDS ORDERED: BUTORPHANOL 1 MG/ML 1 ML VIAL IV PRN (08:26)
--- NOTE | 2022-06-27 08:30 | P.HPOB ---
History of Present Illness H&P Date: 06/27/22 Chief Complaint: 39+ weeks, elective induction the patient is a 27-year-old 3 para 1011 admitted at 39+ weeks as established by last menstrual period and confirmed by 12 week ultrasound. She is admitted for elective induction with all signs reassuring, category 1 heart rate tracing. Her has been entirely uncomplicated and group B strep status is negative. Obstetrical history: 3 para 1011 with 1 term vaginal delivery without complications and one early miscarriage. Current statistics are listed in history of present illness. EDC of 06/30/2022 was established by last menstrual period and confirmed by 12 week ultrasound. Laboratory workup demonstrates a blood type of A+ with a negative antibody screen. Rubella status is immune. The remainder of the laboratory workup was within normal limits. One hour Glucola was normal and group B strep status is negative. Gynecologic history: Unremarkable with no history of any infections to include STDs. Review of Systems review of systems is confined to history of present illness. Past Medical History Past Medical History: No Reported History History of Any Multi-Drug Resistant Organisms: None Reported Past Surgical History: No Surgical Hx Reported Past Anesthesia/Blood Transfusion Reactions: No Reported Reaction Past Psychological History: Anxiety, Bipolar, Depression Smoking Status: Never smoker Past Alcohol Use History: Rare Additional Past Alcohol Use History / Comment(s): Pt. reports rare ETOH use. BAT 0. UDS negative. Past Drug Use History: None Reported - Past Family History Mother Family Medical History: No Reported History Father Family Medical History: No Reported History Medications and Allergies Home Medications Medication Instructions Recorded Confirmed Type lamoTRIgine 200 mg PO DAILY 06/02/22 06/27/22 History Allergies Allergy/AdvReac Type Severity Reaction Status Date / Time No Known Allergies Allergy Verified 06/27/22 06:53 Exam Vital Signs Temp Pulse Resp BP Pulse Ox 06/27/22 06:53 97.5 F L 117 H 18 124/79 99 Intake and Output 06/26/22 06/27/22 06/27/22 22:59 06:59 14:59 Other: Weight 111.13 kg in general this is a well-developed well-nourished white female in no acute distress. Her heart has a regular rhythm and rate without murmur. Her lungs are clear to auscultation bilaterally in all [place]. Her abdomen is gravid, nondistended, has normal active bowel sounds, soft, nontender, without any palpable masses aside from uterine fundus. Her extremities are without any cyanosis, clubbing, or edema and are nontender to palpation bilaterally. Digital cervical examination on straights her cervix to be approximate 3 cm dilated, 50% effaced, vertex in presentation at -2 station. Artificial rupture of membranes is carried out demonstrating clear fluid. Results Result Diagrams: 06/27/22 07:06 Abnormal Lab Results - Last 24 Hours (Table) 06/27/22 Range/Units 07:06 RBC 3.49 L (3.80-5.40) m/uL Hgb 8.3 L (11.4-16.0) gm/dL Hct 27.9 L (34.0-46.0) % MCV 79.9 L (80.0-100.0) fL MCH 23.9 L (25.0-35.0) pg MCHC 29.9 L (31.0-37.0) g/dL RDW 18.1 H (11.5-15.5) % Nucleated RBCs 3 H (0-0) /100 WBC Assessment and Plan (1) Term Current Visit: Yes Status: Acute Code(s): Z34.90 - ENCNTR FOR SUPRVSN OF NORMAL , UNSP, UNSP TRIMESTER SNOMED Code(s): 82320529 Plan: the patient is admitted for elective induction with favorable cervix. Her has been uncompensated. She will have close maternal and surveillance and expectant management will be practiced. She is a good can didate for either IV, epidural, or nitrous analgesia, whichever she may choose.
[2022-06-27] MEDS ORDERED: SODIUM CHLORIDE 0.9% 100 ML BAG ONE (09:29)
[2022-06-27] MEDS ORDERED: ROPIVACAINE 5 MG/ML 20 ML AMPULE ONE (09:29)
[2022-06-27] MEDS ORDERED: fentaNYL (PF) 50 MCG/ML 5 ML AMP ONE (09:29)
[2022-06-27] MEDS ORDERED: ROPIVACAINE 100 MG, fentaNYL (PF). 200 MCG in SODIUM CHLORIDE 0.9% 76 ML EPIDURAL ONE (09:56)
[2022-06-27] MEDS ORDERED: diphenhydrAMINE 25 MG CAP PO PRN (11:15)
[2022-06-27] MEDS ORDERED: ZOLPIDEM 5 MG TAB PO PRN (11:15)
[2022-06-27] MEDS ORDERED: LANOLIN CREAM 5 GM TUBE TOPICAL PRN (11:15)
[2022-06-27] MEDS ORDERED: diphenhydrAMINE 50 MG CAP PO PRN (11:15)
[2022-06-27] MEDS ORDERED: SIMETHICONE 80 MG CHEWABLE PO PRN (11:15)
[2022-06-27] MEDS ORDERED: diphenhydrAMINE 50 MG/ML 1 ML VIAL IVP PRN ×2 (11:15)
[2022-06-27] MEDS ORDERED: BENZOCAINE/MENTHOL SPRAY 1 GM/SPRAY AEROSOL TOPICAL PRN (11:15)
[2022-06-27] MEDS ORDERED: HYDROCORTISONE 2.5% RECTAL CREAM 30 GM TUBE RECTAL PRN (11:15)
--- NOTE | 2022-06-27 11:59 | P.PROBDLV ---
Vaginal Delivery Note - . Vaginal Delivery Note: the patient is a 27-year-old 3 para 1011 admitted at 39-4/7 weeks by good dating parameters perches admitted for elective induction of labor with a favorable cervix and all signs reassuring, category 1 heart rate tracing. Her has been entirely uncomplicated and group B strep status is negative. On labor and delivery, she had Pitocin started and underwent artificial rupture of membranes for clear fluid. She made quick progress to the active phase of labor and had an epidural catheter placed for analgesia. She then progressed very rapidly through the active phase of labor to complete. She pushed over the course of approximate 5 contractions to a normal spontaneous vaginal delivery of a viable 9 lbs. 2 oz. baby boy with Apgars of 8 at 1 minute and 9 at 5 minutes delivered in the direct occiput anterior position. The placenta was delivered spontaneously, intact, and grossly normal with a grossly normal but slightly velamentously inserted three-vessel cord inserted and a central position. There was a small second-degree midline perineal laceration which was repaired in standard fashion using 3-0 chromic catgut without difficulty. estimated blood loss for the case was approximate 150 mL. There were no complications. All sponge, instrument, and needle counts were correct. Both mother and are resting comfortably in recovery.
[2022-06-27] MEDS: IBUPROFEN 600 MG TAB PO PRN ×2 (14:09→20:48)
[2022-06-27] MEDS: SENNOSIDES-DOCUSATE SODIUM 1 EACH TAB PO SCH (20:48)
[2022-06-28 05:29] LABS: Anisocytosis Slight; HCT 25.4 % (34.0-46.0); HGB 7.6 gm/dL (11.4-16.0); Hypochromasia Marked; MCH 23.9 pg (25.0-35.0); MCHC 29.9 g/dL (31.0-37.0); MCV 79.8 fL (80.0-100.0); Mean Platelet Volume 10.9; Microcytosis Slight; Platelet Count 257 k/uL (150-450); Poikilocytosis Moderate; RBC 3.18 m/uL (3.80-5.40); RDW 18.4 % (11.5-15.5); WBC 10.6 k/uL (3.8-10.6)
--- NOTE | 2022-06-28 08:45 | P.DS ---
Providers Date of admission: 06/27/22 06:34 Expected date of discharge: 06/28/22 Attending physician: Obed Ramsey Primary care physician: Stated None - Discharge Diagnosis(es) (1) Term Current Visit: Yes Status: Acute (2) Normal spontaneous vaginal delivery Current Visit: Yes Status: Acute Hospital Course: the patient is a 27-year-old 3 para 1011 admitted at 39-3/7 weeks by good dating parameters perches admitted for an elective induction with all signs reassuring. Her was uncomplicated and group B strep status is negative. On labor and delivery, she had Pitocin augmentation started and underwent artificial rupture of membranes. She made quick progress the active phase of labor at which time an epidural catheter was placed for analgesia. She then progressed quickly through the active phase of labor to complete and pushed to a normal spontaneous vaginal delivery of a viable 9 lbs. 2 oz. baby boy with Apgars of 8 at 1 minute and 9 at 5 minutes. Her course was unremarkable vital signs remaining stable and her temperature was afebrile throughout. She was deemed stable for discharge on day #1 was discharged home to follow-up in the office in 6 weeks' time routinely. Discharge instructions included calling for any significantly increased bleeding or foul-smelling lochia, significantly increased fever abdominal pain, perineal complaints, breast complaints, or anything else that concerned her. She was additionally instructed to have nothing in the vagina for at least 6 weeks to include intercourse. She understood her instructions and agrees to follow up as noted above. Discharge medications included [id number] analgesic pain medications as well as continued vitamins as she has opted to breast- feed. Maternal blood type is A+ and rubella status is immune. Procedures: #1. Pitocin induction #2. Artificial rupture of membranes #3. Epidural analgesia #4. Normal spontaneous vaginal delivery #5. Repair of perineal laceration Patient Condition at Discharge: Stable Plan - Discharge Summary New Discharge Prescriptions: No Action lamoTRIgine 200 mg PO DAILY Discharge Medication List lamoTRIgine 200 mg PO DAILY 06/02/22 [History] Follow up Appointment(s)/Referral(s): Obed Ramsey MD [STAFF PHYSICIAN] - 6 Weeks Discharge Disposition: HOME SELF-CARE
[2022-06-28] MEDS: IBUPROFEN 600 MG TAB PO PRN ×2 (12:39→19:38)
[2022-06-28] MEDS: SENNOSIDES-DOCUSATE SODIUM 1 EACH TAB PO SCH ×2 (12:40→21:14)
[2022-06-29] MEDS: IBUPROFEN 600 MG TAB PO PRN (08:03)
[2022-06-29] MEDS: SENNOSIDES-DOCUSATE SODIUM 1 EACH TAB PO SCH (08:05)
[2022-06-29 08:17] VITALS: BP 121/81; PULSE 85; RESP 15; TEMP 98.2
== END 2022-06-29 14:20 | disposition home or self-care (01) | DRG 807 ==
LOC: 4FBP 06:34
PROVIDERS: ADMIT Obstetrics & Gynecology; ATTEND Obstetrics & Gynecology
PROC: 10E0XZZ Delivery of Products of Conception, External Approach (ICD-10-PCS; principal; 2022-06-27)
PROC: 0KQM0ZZ Repair Perineum Muscle, Open Approach (ICD-10-PCS; 2022-06-27)
PROC: 4A0HXCZ Measurement of Products of Conception, Cardiac Rate, External Approach (ICD-10-PCS; 2022-06-27)
PROC: 10907ZC Drainage of Amniotic Fluid, Therapeutic from Products of Conception, Via Natural or Artificial Opening (ICD-10-PCS; 2022-06-27)
PROC: 3E033VJ Introduction of Other Hormone into Peripheral Vein, Percutaneous Approach (ICD-10-PCS; 2022-06-27)
DX: O62.3 Precipitate labor (principal); Z37.0 Single live birth; O70.1 Second degree perineal laceration during delivery; F31.9 Bipolar disorder, unspecified; O99.344 Other mental disorders complicating childbirth; F41.9 Anxiety disorder, unspecified; Z3A.39 39 weeks gestation of pregnancy; Z79.899 Other long term (current) drug therapy
CPT/HCPCS: 85025; 85027; 86850; 86900; 86901

== ENCOUNTER 2023-04-23 03:45 | Inpatient (IN) | payer BC ==
[2023-04-23] MEDS ORDERED: OXYTOCIN 10 UNIT/ML 1 ML VIAL IM PRN (04:05)
[2023-04-23] MEDS ORDERED: TRANEXAMIC 1,000 MG/100ML-NACL 1,000 MG in EMPTY BAG 1 BAG IV PRN (04:05)
[2023-04-23] MEDS ORDERED: METHYLERGONOVINE 0.2 MG/ML 1 ML AMP IM PRN (04:05)
[2023-04-23] MEDS ORDERED: CARBOPROST TROMETHAMINE 250 MCG/ML 1 ML AMP IM PRN (04:05)
[2023-04-23] MEDS ORDERED: LIDOCAINE 0.5% (PF) 5 MG/ML (50 ML SDV) SQ PRN (04:05)
[2023-04-23] MEDS ORDERED: TERBUTALINE 1 MG/ML VIAL SQ PRN (04:05)
[2023-04-23] MEDS ORDERED: PENICILLIN G POTASSIUM 5,000,000 UNIT in DEXTROSE 5% IN WATER 100 ML IVPB STA ×2 (04:05)
[2023-04-23] MEDS ORDERED: miSOPROStoL 200 MCG TAB PO PRN (04:05)
[2023-04-23] MEDS ORDERED: OXYTOCIN 30 UNITS/500 ML NS 30 UNIT in SALINE 1 500ML.BAG IV SCH ×2 (04:15→06:00)
[2023-04-23] MEDS: LACTATED RINGERS 1,000 ML IV SCH ×3 (04:24→22:10)
[2023-04-23 04:55] LABS: Anisocytosis Slight; Basophils % (A) 0 %; Eosinophils % (A) 1 %; HCT 27.1 % (34.0-46.0); HGB 8.6 gm/dL (11.4-16.0); Hypochromasia Marked; Lymphocytes % (A) 24 %; MCH 24.3 pg (25.0-35.0); MCHC 31.8 g/dL (31.0-37.0); MCV 76.4 fL (80.0-100.0); Mean Platelet Volume 7.9; Microcytosis Slight; Monocytes # (A) 0.3 k/uL (0-1.0); Monocytes % (A) 4 %; Neutrophils # (A) 6.1 k/uL (1.3-7.7); Neutrophils % (A) 71 %; Platelet Count 292 k/uL (150-450); Poikilocytosis Moderate; RBC 3.55 m/uL (3.80-5.40); RDW 18.7 % (11.5-15.5); WBC 8.6 k/uL (3.8-10.6)
--- NOTE | 2023-04-23 05:53 | P.HPOB ---
History of Present Illness H&P Date: 04/23/23 Chief Complaint: Spontaneous onset of labor This is a 28-year-old 4 para 2011 with an estimated due date of 9 at 523 who presents at 36-6/7 weeks gestation in active labor. She reports onset of contractions the day prior with increasing frequency and intensity. Upon presentation to labor and delivery triage she is 5 cm dilated and actively tiffanie. has been complicated by a single umbilical artery in the umbilical cord. The patient also has a history of bipolar disorder. Obstetric history: Term vaginal deliveries in 2016 and 2021 uncomplicated. Voluntary termination of in 2020 Laboratory data: Blood type A positive, antibody screen negative, rubella non- immune, hepatitis B surface antigen negative, HIV negative, gonorrhea and clinic cultures negative, glucose tolerance testing within normal limits. Group B strep unknown Review of Systems All systems: negative Past Medical History Past Medical History: No Reported History History of Any Multi-Drug Resistant Organisms: None Reported Past Surgical History: No Surgical Hx Reported Past Anesthesia/Blood Transfusion Reactions: No Reported Reaction Smoking Status: Never smoker - Past Family History Mother Family Medical History: No Reported History Father Family Medical History: No Reported History Medications and Allergies Home Medications Medication Instructions Recorded Confirmed Type lamoTRIgine 200 mg PO DAILY 06/02/22 04/23/23 History Venlafaxine HCl [Effexor] 75 mg PO DAILY 04/23/23 04/23/23 History Allergies Allergy/AdvReac Type Severity Reaction Status Date / Time No Known Allergies Allergy Verified 04/23/23 03:52 Exam Vital Signs Temp Pulse Resp BP 04/23/23 04:38 97.1 F L 91 18 119/78 Intake and Output 04/22/23 04/22/23 04/23/23 14:59 22:59 06:59 Other: Weight 95.254 kg Results Result Diagrams: 04/23/23 04:22 Abnormal Lab Results - Last 24 Hours (Table) 04/23/23 Range/Units 04:22 RBC 3.55 L (3.80-5.40) m/uL Hgb 8.6 L (11.4-16.0) gm/dL Hct 27.1 L (34.0-46.0) % MCV 76.4 L (80.0-100.0) fL MCH 24.3 L (25.0-35.0) pg RDW 18.7 H (11.5-15.5) % Assessment and Plan (1) Rubella non-immune status, antepartum Current Visit: Yes Status: Acute Code(s): O09.899 - SUPERVISION OF OTHER HIGH RISK PREGNANCIES, UNSP TRIMESTER; Z28.39 - OTHER UNDERIMMUNIZATION STATUS SNOMED Code(s): 523010600 (2) Spontaneous onset of labor Current Visit: Yes Status: Acute Code(s): YTP2085 - SNOMED Code(s): 43903375 (3) Single umbilical artery Current Visit: Yes Status: Acute Code(s): Q27.0 - CONGENITAL ABSENCE AND HYPOPLASIA OF UMBILICAL ARTERY SNOMED Code(s): 963519806 (4) Bipolar 2 disorder Current Visit: No Status: Acute Priority: High Code(s): F31.81 - BIPOLAR II DISORDER SNOMED Code(s): 29507454 Plan: He 8-year-old 4 para 2 woman admitted at 36-6/7 weeks gestation in spontaneous labor. Group B strep status is unknown and prophylactic antibiotics will be initiated. She is Rh+ and rubella nonimmune.
--- NOTE | 2023-04-23 05:56 | P.PROBDLV ---
Vaginal Delivery Note - . Vaginal Delivery Note: Findings: Female in the vertex presentation weighing 7 lbs. 2 oz., 3220 g, Apgars of 8 at 1 minute and 9 at 5 minutes. Thick particulate meconium- stained fluid. True knot in the umbilical cord. No perineal lacerations. Intact, two-vessel cord placenta with meconium staining. EBL 150 mL's. Delivery summary: This is a 28-year-old 4 para 2012 woman who presented in spontaneous labor at 36-6/7 weeks' gestation. Following admission she did request an epidural anesthetic. She was 5 cm dilated at that time. When she was sitting up for the epidural anesthetic she had strong urge to push and immediately laid back in the bed. At that time showed spontaneous rupture of membranes followed rapidly by delivery of the infant. On RN in attendance. The infant was vigorous at the time of delivery. I arrived shortly there after. Placenta still undelivered. The perineum once inspected and no lacerations were noted. There was thick particulate meconium-stained fluid noted. Pitocin was initiated and an intact, 2 vessel cord placenta was delivered. The perineum and vagina and cervix were inspected and no lacerations were noted. The uterus was massaged and was firm below the level of the umbilicus. Delivery was very rapid and group B strep prophylactic antibiotics had not yet been on administered. Mother and were both doing well post delivery in the room and counts were correct.
[2023-04-23] MEDS ORDERED: diphenhydrAMINE 50 MG/ML 1 ML VIAL IVP PRN ×2 (05:57)
[2023-04-23] MEDS ORDERED: HYDROCORTISONE 2.5% RECTAL CREAM 30 GM TUBE RECTAL PRN (05:57)
[2023-04-23] MEDS ORDERED: LANOLIN CREAM 5 GM TUBE TOPICAL PRN (05:57)
[2023-04-23] MEDS ORDERED: diphenhydrAMINE 25 MG CAP PO PRN (05:57)
[2023-04-23] MEDS ORDERED: SIMETHICONE 80 MG CHEWABLE PO PRN (05:57)
[2023-04-23] MEDS ORDERED: ZOLPIDEM 5 MG TAB PO PRN (05:57)
[2023-04-23] MEDS ORDERED: BENZOCAINE/MENTHOL SPRAY 1 GM/SPRAY AEROSOL TOPICAL PRN (05:57)
[2023-04-23] MEDS ORDERED: diphenhydrAMINE 50 MG CAP PO PRN (05:57)
[2023-04-23] MEDS ORDERED: MEASLES-MUMPS-RUBELLA VACC/PF 12,500 UNIT/0.5 ML VIAL SQ ONE (05:57)
[2023-04-23] MEDS: IBUPROFEN 600 MG TAB PO PRN ×2 (06:11→20:21)
[2023-04-23 07:07] VITALS: RESP 16
[2023-04-23] MEDS: SENNOSIDES-DOCUSATE SODIUM 1 EACH TAB PO SCH ×2 (07:39→20:21)
[2023-04-23] MEDS ORDERED: PENICILLIN G POTASSIUM 2,500,000 UNIT in DEXTROSE 5% IN WATER 100 ML IVPB SCH ×2 (09:00)
[2023-04-23] MEDS: ACETAMINOPHEN TAB 325 MG TAB PO PRN (23:41)
[2023-04-24 07:14] LABS: Anisocytosis Slight; HCT 24.9 % (34.0-46.0); HGB 7.5 gm/dL (11.4-16.0); Hypochromasia Marked; MCH 23.4 pg (25.0-35.0); MCV 77.9 fL (80.0-100.0); Mean Platelet Volume 9.3; Microcytosis Slight; Platelet Count 256 k/uL (150-450); Poikilocytosis Moderate; RBC 3.19 m/uL (3.80-5.40)
[2023-04-24 07:53] VITALS: BP 126/74; PULSE 73; TEMP 98
--- NOTE | 2023-04-24 09:56 | P.PNOBGVD ---
Subjective - Subjective Patient reports: Reports appetite normal, Reports voiding normally, Reports pain well controlled, Reports ambulating normally : doing well, in NICU (Issues of prematurity, primarily.) Objective - Latest Vital Signs Latest vital signs: Vital Signs Temp Pulse Resp BP Pulse Ox 04/24/23 07:50 98.0 F 73 16 126/74 99 04/23/23 23:57 98.2 F 80 16 112/65 99 04/23/23 16:00 98.4 F 94 16 124/81 04/23/23 12:00 98.8 F 56 L 16 99/64 99 Intake and Output 04/23/23 04/24/23 04/24/23 22:59 06:59 14:59 Other: # Voids 1 2 1 - Exam Extremities: Present: normal Abdomen: Present: normal appearance, soft Uterus: Present: normal, firm (The uterine fundus as tonic and nontender below the umbilicus.) - Labs Labs: Abnormal Lab Results - Last 24 Hours (Table) 04/24/23 Range/Units 06:56 RBC 3.19 L (3.80-5.40) m/uL Hgb 7.5 L (11.4-16.0) gm/dL Hct 24.9 L (34.0-46.0) % MCV 77.9 L (80.0-100.0) fL MCH 23.4 L (25.0-35.0) pg MCHC 30.0 L (31.0-37.0) g/dL RDW 19.0 H (11.5-15.5) % Assessment and Plan (1) Normal spontaneous vaginal delivery Current Visit: No Status: Acute Code(s): O80 - ENCOUNTER FOR FULL-TERM UNCOMPLICATED DELIVERY SNOMED Code(s): 77317072 Plan: Continue routine care. I would anticipate discharge home tomorrow pending complications.
[2023-04-24 10:55] LABS: Lymphocytes # (M) 2.72 k/uL (1.0-4.8); Neutrophils # (M) 4.88 k/uL (1.3-7.7); Neutrophils % (M) 61 %; Nucleated Red Blood Cells 0 /100 WBC (0-0); Total Cells Counted 100
[2023-04-24] MEDS: ACETAMINOPHEN TAB 325 MG TAB PO PRN (12:37)
[2023-04-24] MEDS: SENNOSIDES-DOCUSATE SODIUM 1 EACH TAB PO SCH (12:48)
[2023-04-24] MEDS ORDERED: medroxyPROGESTERone 150 MG/ML 1ML VIAL IM ONE (13:06)
--- NOTE | 2023-04-24 17:05 | P.DS ---
Providers Date of admission: 04/23/23 04:03 Expected date of discharge: 04/24/23 Attending physician: Obed Ramsey Primary care physician: Stated None - Discharge Diagnosis(es) (1) Normal spontaneous vaginal delivery Status: Acute Hospital Course: The patient is a 28-year-old or para 2012 admitted at 36-6/7 weeks in active labor with all signs reassuring. She is known to have a single umbilical artery and has had assuring testing throughout the third trimester. On labor and delivery, she made fairly rapid progress and, while sitting up to have an epidural catheter placed, felt the urge to push. She was checked and almost immediately delivered in a precipitous fashion with the nursing staff in attendance. My partner arrived shortly thereafter to deliver the placenta. She was delivered of a viable 7 lbs. 2 oz. baby girl with Apgars of 8 at 1 minute and 9 at 5 minutes. The patient's course was unremarkable with vital signs remaining stable and her temperature was afebrile throughout. She was deemed stable for discharge on day #1 was discharged home to follow- up in the office in 6 weeks' time routinely. Discharge instructions included calling for any significantly increased bleeding or foul-smelling lochia, significantly increased fever or abdominal pain, perineal complaints, breast complaints, or anything else that concerned her. She was additionally instructed to have nothing in the vagina for at least 6 weeks time to include intercourse. She understood her instructions and agrees to follow up as noted above. Discharge medications included only [id number] analgesic pain medications as well as iron sulfate as she was anemic . She was given a dose of Depo-Provera 150 mg IM prior to discharge. Maternal blood type is A+ and rubella status is nonimmune. She therefore was to receive the MMR vaccination prior to discharge. Procedures: #1. Normal spontaneous vaginal delivery, precipitous Patient Condition at Discharge: Good Plan - Discharge Summary New Discharge Prescriptions: No Action RX: lamoTRIgine 200 mg PO DAILY Venlafaxine HCl [Effexor] 75 mg PO DAILY Discharge Medication List RX: lamoTRIgine 200 mg PO DAILY 06/02/22 [History] Venlafaxine HCl [Effexor] 75 mg PO DAILY 04/23/23 [History] Follow up Appointment(s)/Referral(s): Lensmeyer,Obed, MD [STAFF PHYSICIAN] - 6 Weeks Patient Instructions/Handouts: Vaginal Delivery (DC) Discharge Disposition: HOME SELF-CARE
--- NOTE | 2023-04-25 13:57 | CDI ---
Documentation Clarification Form Date: 04/25/2023 01:45:01 PM From: Kaylah Reynolds Admit Date: 04/23/2023 04:03:00 AM Patient Name: Frances Alvarado Visit Number: [id number] Discharge Date: 04/24/2023 01:25:00 PM ATTENTION: The Clinical Documentation Specialists (CDI) and [facility] Coding Staff appreciate your assistance in clarifying documentation. Please respond to the clarification below the line at the bottom and electronically sign. The CDI & [facility] Coding staff will review the response and follow-up if needed. Please note: Queries are made part of the Legal Health Record. If you have any questions, please contact the author of this message via ITS. Dr. Obed Ramsey anemia is documented 04/24/23 in the discharge summary. Additional specificity regarding the acuity of anemia is requested. History/Risk Factors: Patient is a 28 year old 4 para 2011, admitted in active labor. Has a history of term vaginal deliveries in 2016 and 2021 uncomplicated. Clinical indicators: patient had a spontaneous onset of labor at 36 6/7 weeks. Thick particulate meconium stained fluid. True knot in the umbilical cord. No perineal lacerations. 2 vessel cord. Rapid delivery of a single live born infant, no complications. EBL: 150 mls Hemoglobin: 04/23/23: 8.6, 04/24/23: 7.5 Hematocrit: 04/23/23: 27.1, 04/24/23: 24.9 Treatment: discharge medication iron sulfate Please clarify acuity of anemia: [ x] Acute blood loss anemia [ ] Acute on chronic blood loss anemia [ ] Chronic blood loss anemia [ ] Unable to determine [ ] Other, please specify These situations do not typically apply to and patients. Nearly all patients are anemic and nearly all patients lose blood at delivery. Therefore nearly all patients would qualify for this and that should summarily be ignored. MTDD
== END 2023-04-24 13:25 | disposition home or self-care (01) | DRG 806 ==
LOC: FBPOP 03:45 → 4FBP 04:03
PROVIDERS: ADMIT Obstetrics & Gynecology; ATTEND Obstetrics & Gynecology
PROC: 10E0XZZ Delivery of Products of Conception, External Approach (ICD-10-PCS; principal; 2023-04-23)
PROC: 3E0134Z Introduction of Serum, Toxoid and Vaccine into Subcutaneous Tissue, Percutaneous Approach (ICD-10-PCS; principal; 2023-04-23)
DX: O60.14X0 Preterm labor third trimester with preterm delivery third trimester, not applicable or unspecified (principal); D62 Acute posthemorrhagic anemia; F31.81 Bipolar II disorder; O69.89X0 Labor and delivery complicated by other cord complications, not applicable or unspecified; O99.344 Other mental disorders complicating childbirth; O99.02 Anemia complicating childbirth; O69.2XX0 Labor and delivery complicated by other cord entanglement, with compression, not applicable or unspecified; O62.3 Precipitate labor; O77.0 Labor and delivery complicated by meconium in amniotic fluid; Z79.899 Other long term (current) drug therapy; Z23 Encounter for immunization; Z3A.36 36 weeks gestation of pregnancy; Z37.0 Single live birth
CPT/HCPCS: 59025; 85025; 86850; 86900; 86901; 88307; 90707; 99213

== ENCOUNTER 2023-09-18 16:57 | Emergency (ER) | payer BC ==
[2023-09-18] MEDS ORDERED: SODIUM CHLORIDE 0.9% 500 ML 500 ML IV STA (17:00)
--- NOTE | 2023-09-18 17:05 | ED ---
General Adult HPI - General Stated complaint: Chest Pain Time Seen by Provider: 09/18/23 16:57 Source: patient, RN notes reviewed, old records reviewed - History of Present Illness Initial comments: This is a 28 her old female presents emergency department stating that she was having some left-sided chest burning at home about an hour ago. Patient states is started shortly after she took a marijuana gummy. Patient states it's a burning sensation doesn't appear to radiate more. Patient denies any difficulty breathing first breath per patient denies any fever chills or cough recently. Patient denies any injury. Patient denies any abdominal pain patient denies nausea vomiting diarrhea. Patient denies any diaphoretic episodes. According to EMS patient was normal sinus rhythm for the whole ride in. - Related Data Home Medications Medication Instructions Recorded Confirmed ARIPiprazole [Abilify] 10 mg PO DAILY 09/18/23 09/18/23 Dextroamphetamine/Amphetamine 25 mg PO DAILY 09/18/23 09/18/23 [Adderall Xr 25 mg Capsule] Venlafaxine HCl ER [Effexor Xr] 150 mg PO DAILY 09/18/23 09/18/23 lamoTRIgine [LaMICtal] 150 mg PO BID 09/18/23 09/18/23 Allergies Allergy/AdvReac Type Severity Reaction Status Date / Time No Known Allergies Allergy Verified 09/18/23 17:45 Review of Systems ROS Statement: Those systems with pertinent positive or pertinent negative responses have been documented in the HPI. ROS Other: All systems not noted in ROS Statement are negative. Past Medical History Past Medical History: No Reported History History of Any Multi-Drug Resistant Organisms: None Reported Past Surgical History: No Surgical Hx Reported Additional Past Surgical History / Comment(s): x1 wisdom tooth extraction Past Anesthesia/Blood Transfusion Reactions: No Reported Reaction Smoking Status: Never smoker - Past Family History Mother Family Medical History: No Reported History Father Family Medical History: No Reported History General Exam - General Exam Comments Initial Comments: GENERAL: Patient is well-developed and well-nourished. Patient is nontoxic and well- hydrated and is in mild distress. ENT: Neck is soft and supple. No significant lymphadenopathy is noted. Oropharynx is clear. Moist mucous membranes. Neck has full range of motion without eliciting any pain. EYES: The sclera were anicteric and conjunctiva were pink and moist. Extraocular movements were intact and pupils were equal round and reactive to light. Eyelids were unremarkable. PULMONARY: Unlabored respirations. Good breath sounds bilaterally. No audible rales rhonchi or wheezing was noted. CARDIOVASCULAR: There is a regular rate and rhythm without any murmurs gallops or rubs. ABDOMEN: Soft and nontender with normal bowel sounds. SKIN: Skin is clear with no lesions or rashes and otherwise unremarkable. NEUROLOGIC: Patient is alert and oriented x3. Cranial nerves II through XII are grossly intact. Motor and sensory are also intact. Normal speech, volume and content. Symmetrical smile. MUSCULOSKELETAL: Normal extremities with adequate strength and full range of motion. LYMPHATICS: No significant lymphadenopathy is noted PSYCHIATRIC: Normal psychiatric evaluation. Course Vital Signs 09/18/23 09/18/23 16:59 20:22 Temperature 98.8 F Pulse Rate 92 95 Respiratory 16 18 Rate Blood Pressure 124/84 132/102 O2 Sat by Pulse 100 99 Oximetry Medical Decision Making - Medical Decision Making EKG is interpreted by myself. EKG shows a sinus rhythm at 90 bpm ND interval 245 dresses 81 QT interval 390 QTC is 387. Patient's EKG shows no ST segment elevation or depression. Was pt. sent in by a medical professional or institution (, PA, ARCADE ATTENDANT, urgent care, hospital, or long-term...) When possible be specific @ -No Did you speak to anyone other than the patient for history (EMS, parent, family, police, friend...)? What history was obtained from this source @ -No Did you review nursing and triage notes (agree or disagree)? Why? @ -I reviewed and agree with nursing and triage notes Were old charts reviewed (outside hosp., previous admission, EMS record, old EKG, old radiological studies, urgent care reports/EKG's, long-term records)? Report findings @ -No old charts were reviewed Differential Diagnosis (chest pain, altered mental status, abdominal pain women, abdominal pain men, vaginal bleeding, weakness, fever, dyspnea, syncope, headache, dizziness, GI bleed, back pain, seizure, CVA, palpatations, mental health, musculoskeletal)? @ -Differential chest pain EKG interpreted by me (3pts min.). @ -As above X-rays interpreted by me (1pt min.). @ -Chest x-ray shows no acute abnormality CT interpreted by me (1pt min.). @ -None done U/S interpreted by me (1pt. min.). @ -Ultrasound shows no acute abnormality What testing was considered but not performed or refused? (CT, X-rays, U/S, labs)? Why? @ -None What meds were considered but not given or refused? Why? @ -None Did you discuss the management of the patient with other professionals (professionals i.e. , PA, ARCADE ATTENDANT, lab, RT, psych nurse, social services director, scrap preparer, teacher, residential care officer, rn case manager)? Give summary @ -No Was smoking cessation discussed for >3mins.? @ -No Was critical care preformed (if so, how long)? @ -No Were there social determinants of health that impacted care today? How? (Homelessness, low income, unemployed, alcoholism, drug addiction, transportation, low edu. Level, literacy, decrease access to med. care, half-way, rehab)? @ -No Was there de-escalation of care discussed even if they declined (Discuss DNR or withdrawal of care, Hospice)? DNR status @ -No What co-morbidities impacted this encounter? (DM, HTN, Smoking, COPD, CAD, Cancer, CVA, ARF, Chemo, Hep., AIDS, mental health diagnosis, sleep apnea, morbid obesity)? @ -None Was patient admitted / discharged? Hospital course, mention meds given and route, prescriptions, significant lab abnormalities, going to OR and other pertinent info. @ -I went back multiple times to reevaluate the patient she no longer any chest pain or abdominal pain. Labs were all normal except for mildly elevated liver enzymes. A gallbladder ultrasound was done and showed no acute abnormalities. Patient's chest x-ray showed no acute abnormality. And at this time patient is pain-free and wants to go home. Undiagnosed new problem with uncertain prognosis? @ -No Drug Therapy requiring intensive monitoring for toxicity (Heparin, Nitro, Insulin, Cardizem)? @ -No Were any procedures done? @ -No Diagnosis/symptom? @ -Atypical chest pain Acute, or Chronic, or Acute on Chronic? @ -Acute Uncomplicated (without systemic symptoms) or Complicated (systemic symptoms)? @ -complicated Side effects of treatment? @ -No Exacerbation, Progression, or Severe Exacerbation? @ -No Poses a threat to life or bodily function? How? (Chest pain, [place], [place], pneumonia, PE, COPD, DKA, ARF, appy, cholecystitis, CVA, Diverticulitis, Homicidal, Suicidal, threat to staff... and all critical care pts) @ -No - Lab Data Result diagrams: 09/18/23 17:39 09/18/23 17:39 Lab Results 09/18/23 09/18/23 09/18/23 Range/Units 17:39 17:39 17:39 WBC 7.6 (3.8-10.6) k/uL RBC 4.35 (3.80-5.40) m/uL Hgb 11.5 (11.4-16.0) gm/dL Hct 35.0 (34.0-46.0) % MCV 80.3 (80.0-100.0) fL MCH 26.5 (25.0-35.0) pg MCHC 33.0 (31.0-37.0) g/dL RDW 16.3 H (11.5-15.5) % Plt Count 398 (150-450) k/uL MPV 7.7 Neutrophils % 72 % Lymphocytes % 21 % Monocytes % 4 % Eosinophils % 2 % Basophils % 0 % Neutrophils # 5.4 (1.3-7.7) k/uL Lymphocytes # 1.6 (1.0-4.8) k/uL Monocytes # 0.3 (0-1.0) k/uL Eosinophils # 0.1 (0-0.7) k/uL Basophils # 0.0 (0-0.2) k/uL Hypochromasia Slight Anisocytosis Slight Sodium 140 (137-145) mmol/L Potassium 4.1 (3.5-5.1) mmol/L Chloride 106 (98-107) mmol/L Carbon Dioxide 17 L (22-30) mmol/L Anion Gap 17 mmol/L BUN 12 (7-17) mg/dL Creatinine 0.78 (0.52-1.04) mg/dL Est GFR (CKD-EPI)AfAm >90 (>60 ml/min/1.73 sqM) Est GFR (CKD-EPI)NonAf >90 (>60 ml/min/1.73 sqM) Glucose 108 H (74-99) mg/dL Calcium 9.8 (8.4-10.2) mg/dL Magnesium 2.2 (1.6-2.3) mg/dL Total Bilirubin 0.7 (0.2-1.3) mg/dL AST 44 H (14-36) U/L ALT 51 H (4-34) U/L Alkaline Phosphatase 142 H (38-126) U/L Troponin I <0.012 (0.000-0.034) ng/mL Total Protein 8.1 (6.3-8.2) g/dL Albumin 4.8 (3.5-5.0) g/dL Disposition Clinical Impression: Atypical chest pain Disposition: HOME SELF-CARE Condition: Good Instructions (If sedation given, give patient instructions): Chest Pain (ED) Is patient prescribed a controlled substance at d/c from ED?: No Referrals: Fabian Conway DO [Primary Care Provider] - 1-2 days Time of Disposition: 20:39
[2023-09-18 17:25] VITALS: TEMP 98.8
--- NOTE | 2023-09-18 17:25 | XR ---
EXAMINATION TYPE: XR chest 2V DATE OF EXAM: 09/18/2023 5:20 PM CLINICAL INDICATION:Female, 28 years old with history of Chest Pain; COMPARISON: None TECHNIQUE: XR chest 2V Frontal and lateral views of the chest. FINDINGS: Lungs/Pleura: There is no evidence of pleural effusion, focal consolidation, or pneumothorax. Pulmonary vascularity: Unremarkable. Heart/mediastinum: Cardiomediastinal silhouette is unremarkable. Musculoskeletal: No acute osseous pathology. IMPRESSION: No acute cardiopulmonary disease/process.
[2023-09-18 17:52] LABS: Anisocytosis Slight; Basophils % (A) 0 %; Eosinophils # (A) 0.1 k/uL (0-0.7); Eosinophils % (A) 2 %; HGB 11.5 gm/dL (11.4-16.0); Hypochromasia Slight; Lymphocytes # (A) 1.6 k/uL (1.0-4.8); Lymphocytes % (A) 21 %; MCH 26.5 pg (25.0-35.0); MCV 80.3 fL (80.0-100.0); Mean Platelet Volume 7.7; Monocytes # (A) 0.3 k/uL (0-1.0); Monocytes % (A) 4 %; Neutrophils # (A) 5.4 k/uL (1.3-7.7); Neutrophils % (A) 72 %; Platelet Count 398 k/uL (150-450); RBC 4.35 m/uL (3.80-5.40); RDW 16.3 % (11.5-15.5); WBC 7.6 k/uL (3.8-10.6)
[2023-09-18 18:29] LABS: ALT 51 U/L (4-34); African American GFR (CKD) >90 (>60 ml/min/1.73 sqM); Albumin 4.8 g/dL (3.5-5.0); Anion Gap 17 mmol/L; Blood Urea Nitrogen 12 mg/dL (7-17); Calcium 9.8 mg/dL (8.4-10.2); Carbon Dioxide 17 mmol/L (22-30); Chloride 106 mmol/L (98-107); Glucose 108 mg/dL (74-99); Non-African American GFR(CKD) >90 (>60 ml/min/1.73 sqM); Sodium 140 mmol/L (137-145); Total Bilirubin 0.7 mg/dL (0.2-1.3); Total Protein 8.1 g/dL (6.3-8.2)
[2023-09-18 18:39] LABS: AST 44 U/L (14-36); Alkaline Phosphatase 142 U/L (38-126); Magnesium 2.2 mg/dL (1.6-2.3); Potassium 4.1 mmol/L (3.5-5.1)
--- NOTE | 2023-09-18 20:25 | US ---
EXAMINATION TYPE: US gallbladder DATE OF EXAM: 09/18/2023 COMPARISON: NONE CLINICAL INDICATION: Female, 28 years old with history of Right upper quadrant abdominal pain; Pt cam e in for chest pain. Pt states on and off abd pain for a month TECHNIQUE: Multiple sonographic images of the right upper quadrant are obtained. FINDINGS: EXAM MEASUREMENTS: Liver Length: 13.8 cm Gallbladder Wall: 0.25 cm CBD: 0.31 cm Right Kidney: 9.6 x 4.9 x 4.3 cm LOOM FIXER HELPER NOTES: Pancreas: Parts seen appear wnl Liver: wnl Gallbladder: wnl Evidence for sonographic Webb's sign: No CBD: wnl Right Kidney: wnl IMPRESSION: No evidence for acute process.
[2023-09-18 20:42] VITALS: BP 132/102; PULSE 95; RESP 18
== END 2023-09-18 20:52 | disposition home or self-care (01) ==
LOC: EC 16:57
DX: R07.89 Other chest pain (principal)
CPT/HCPCS: 36415; 71046; 76705; 80053; 83735; 84484; 85025; 93005; 96360; 99285

== ENCOUNTER 2023-12-18 04:25 | Emergency (ER) | payer BC ==
[2023-12-18 04:30] VITALS: BP 145/75; PULSE 100; RESP 18; TEMP 97.9
== END 2023-12-18 05:50 | disposition left against medical advice (07) ==
LOC: EC 04:25
DX: F99 Mental disorder, not otherwise specified (principal); F41.9 Anxiety disorder, unspecified
CPT/HCPCS: 82075; 99499